=== PATIENT | female | born 1950 | race Caucasian/White ===

== ENCOUNTER 2018-06-07 06:47 | Day surgery (SDC) | payer MEDICARE, BC ==
[~2018-06-07 06:47] MED LIST: Lactated Ringers 1,000 ML IV SCH
[2018-06-07] MEDS ORDERED: Propofol 200 MG/20 ML SDV ONE (09:12)
[2018-06-07] MEDS ORDERED: fentaNYL 100 MCG/2 ML SDV ONE (09:12)
--- NOTE | 2018-06-07 11:56 | OR ---
PREOPERATIVE DIAGNOSIS: Screening colonoscopy. POSTOPERATIVE DIAGNOSIS: Normal colonoscopic exam. PROCEDURE PROPOSED: Total flexible colonoscopy. PROCEDURE DONE: Total flexible colonoscopy. INDICATION: This is a 67-year-old female, who comes in for screening colonoscopy. She did have 1 previously about 13 years ago, that was normal. She denies any symptomatology, and she has a negative family history for any colon cancer. DESCRIPTION OF PROCEDURE: The patient was brought to the endoscopy suite, placed in left lateral decubitus position. She was sedated per LIBRARY CLERK with propofol. The flexible video colonoscope was then passed transanally and under visualization advanced to the cecum. Examination revealed normal ascending, transverse, descending, sigmoid, and rectal colon. There was no evidence of any polyps, diverticulosis, colitis, or any other abnormalities. The scope was then withdrawn. The patient tolerated the procedure well. FINAL IMPRESSION: Normal colonoscopic exam. PLAN: The patient is reassured and I felt she could wait 10 years before she needs a repeat colonoscopy. SCM: 06/07/2018 10:15:59 MODL: 06/07/2018 10:36:11 /[id number]
== END 2018-06-07 11:15 | disposition home or self-care (01) ==
LOC: VM.SDS 06:47
PROVIDERS: ATTEND Surgery
DX: Z12.11 Encounter for screening for malignant neoplasm of colon (principal); L90.0 Lichen sclerosus et atrophicus; Z88.1 Allergy status to other antibiotic agents; Z88.2 Allergy status to sulfonamides; Z91.09 Other allergy status, other than to drugs and biological substances
CPT/HCPCS: J2704; J3010; J7120